=== PATIENT | female | born 1950 | race Caucasian/White ===

== ENCOUNTER → 2019-04-14 09:02 | Outpatient (CLI) | payer MEDICARE, SELFPAY ==
--- NOTE | 2019-04-14 | PATH_ITS ---
Note [facility] Accession Number: [id number] TESTS RESULT FLAG UNITS REF RANGE LAB Clinician Provided Cytology Information No. of containers..00 Previously Prepared Cytology Slide 35 Unknown Storage/container code(s) 01 RIGHT THYROID NODULE DIAGNOSIS: 01 RIGHT THYROID NODULE, FINE NEEDLE ASPIRATION. INCONCLUSIVE. [place] CATEGORY III. ATYPIA OF UNDETERMINED SIGNIFICANCE, SEE COMMENT. COMMENT: EXAMINATION OF THE SMEARS REVEALS A CELLULAR ASPIRATE, COMPOSED OF ABUNDANT COLLOID, MACROPHAGES AND BENIGN FOLLICULAR GROUPS WITH HURTHLE CELL CHANGES. IN ADDITION, THERE ARE FEW GROUPS WHERE MILD NUCLEAR ENLARGEMENT, OVERLAPPING AND SLIGHT NUCLEAR MEMBRANE IRREGULARITIES ARE NOTED. INTRANUCLEAR PSEUDOINCLUSIONS ARE NOT SEEN. THE RISK OF MALIGNANCY IN THE BETHESDA CATEGORY III IS 5-15%. RE-ASPIRATION IS RECOMMENDED. ADDITIONAL MOLECULAR TESTING WILL BE BE PERFORMED, FOR FURTHER ELUCIDATION. Pathologist ICD10: 01 E04.2 01 FINDINGS: THE RIGHT LOBE OF THE THYROID MEASURES 6.1 X 2.2 X 2.1 CM. THE LEFT LOBE OF THYROID MEASURES 5.7 X 1.5 X 1.4 CM. THE ISTHMUS IS MEASURED AT 5 MM. THE THYROID GLAND IS DIFFUSELY HETEROGENEOUS IN ECHOTEXTURE. RIGHT NODULES: NODULE 1: RIGHT MID. 1.8 X1.9 X 2.8 CM. PREDOMINANTLY SOLID. HYPOECHOIC. WIDER THAN TALL, SMOOTH, NO CALCIFICATIONS. TR 4. NODULE 2:RIGHT SUPERIOR. MIXED CYSTIC AND SOLID. 7 X 7 MM. ISOECHOIC. WIDER THAN TALL. SMOOTH. NO CALCIFICATIONS. TR2. LEFT NODULES: NODULES 1: LEFT SUPERIOR. 5 X 3 X 4 CM. SOLID HYPOECHOIC. WIDER THAN TALL. SMOOTH.NO CALCIFICATIONS. TR 4.UNCHANGED NODULES 2: LEFT INFERIOR. 8 X 4 X 7 MM. SOLID. HYPOECHOIC. WIDER THAN TALL. SMOOTH.NO CALCIFICATIONS. TR 4.UNCHANGED ISTHMUS: A HYPOECHOIC PROBABLE CYST MEASURING 7 X 4 MM.UNCHANGED. 1.IMPRESION: SOLID NODULE IN THE MID RIGHT THYROID, TR 4.THIS NODULE IS SIMILAR IN APPEARANCE TO PREVIOUS STUDY MEASURING SLIGHTLY LARGER IN A SINGLE DIMENSION. 2. TWO SUBCENTIMETER NODULES IN THE LEFT THYROID, UNCHANGED. 01 Bridger Bonilla MD, Pathologist NPI- [id number] Jovany Lucero, Immigration Specialist ([facility]) 01 30 CC, RED, CLEAR RECIEVED: 5 ALCOHOL FIXED AND 5 QUICK STAINED SLIDES WITH 1 RNA VIAL FOR FURTHER TESTING. /VDU 04/15/2019 0940 Local FLAG LEGEND: L-Low Normal,H-High Normal,LL-Alert Low,HH-Alert High <-Panic Low,>-Panic High,A-Abnormal,AA-Critical Abnormal Performed at: 01 =Z [facility] [address], [place] [address] Robert Cox MD, Performed at: 01 [facility] [address], [place], [place] [id number] MD Robert Cox MD Phone: [phone]
--- NOTE | 2019-04-14 09:16 | DI.US.S_ITS ---
PROCEDURE: US FINE NEEDLE ASPIRATION INDICATIONS: RIGHT THYROID NODULE TECHNIQUE: The indications, alternatives, benefits, risks, and complications of the procedure were explained to the patient. Written informed consent was obtained and placed in the chart. The thyroid region was examined sonographically and a site was chosen for ultrasound guided percutaneous sampling. The skin was prepared and draped in the usual fashion, and anesthetized with 1% lidocaine infiltrated from the skin down to the thyroid gland. Multiple passes were then performed, with contents emptied into an appropriate pathology specimen container. A bandage was applied to the area of access at completion of the study. COMPARISON: None. FINDINGS: Location(s) of lesion(s) sampled: Right lobe [place]: 25 gauge hypodermic needles. Number of passes: 5 Medications: 1% lidocaine for local anaesthesia. Complications: None. IMPRESSION: Successful ultrasound-guided thyroid nodule fine needle aspiration, with cytology results pending. Please see chart below for management recommendations based on cytology results. [employer] [facility] ReportingRecommendationsNon-diagnostic* Repeat US-guided FNA, with on-site cytology evaluation if possible. * Repeated non-diagnostic nodules without high suspicion US features: close observation vs surgical consult. * Consider surgery if nodule has high suspicion US features, grows >20% in 2 dimensions on followup, or patient has clinical risk factors for malignancy. Benign* If nodule has high suspicion US features: repeat US and FNA within 12 months. * If nodule has low to intermediate suspicion US features: repeat US at 12-24 months. If nodule grows (20% increase in at least 2 dimensions, with minimal increase of 2 mm or >50% change in volume), or development of new suspicious US features, then repeat FNA or continue followup. * If nodule has very low suspicion US features: followup US at >24 months. Atypia of undetermined significance, follicular lesion of undetermined significanceRepeat FNA, molecular testing, followup US, or surgical consult.Follicular neoplasm, suspicious for follicular neoplasmSurgical consult; also consider molecular testing. Suspicious for malignancySurgical consult.MalignantSurgical consult. Dictated by: Andres Yip M.D. on 04/14/2019 at 12:34 Approved by: Andres Yip M.D. on 04/14/2019 at 12:35
== END ==
PROVIDERS: PCP Nurse Practitioner Family; Referring Provider Nurse Practitioner Family; Visit Provider Nurse Practitioner Family
DX: E04.1 Nontoxic single thyroid nodule (principal)
CPT/HCPCS: 10005